=== PATIENT | female | born 1990 | race Two or more races ===

== ENCOUNTER 2024-10-05 11:27 | Emergency (ER) | payer MEDICAID, OTHER ==
[~2024-10-05] VITALS: Ht 144.8 cm; Wt 70.0 kg
--- NOTE | 2024-10-05 11:54 | ED.PDOC ---
General HPI Comments 34y F who presents to the ED for chief complaint of flank pain. Pt states she has been having L sided flank pain since 1 days prior. Pt states the pain is constant, rating the pain 9/10, achy in nature, with associated pain radiating diffusely across her abdomen, with no associated exacerbating or relieving factors. Pt has no associated symptoms but denies nausea, vomiting, diarrhea, fever, cough, chills, dysuria, hematuria or hematemesis. Pt states she is currently 4 1/2 weeks and states she saw OB last week and states she has normal . Pt otherwise states she does have umbilical hernia but states she has not yet seen any provider for it. Pt otherwise denies any other symptoms at this time. Time Seen by MD: 11:50 Reviewed notes: Nurses Notes, Medications, Allergies Allergies: Coded Allergies: NO KNOWN ALLERGIES (Unverified , 10/05/24) Information Source: Patient Mode of Arrival: Ambulatory Brought in by: self Severity: Moderate Inability to void: None Timing: Hours Duration: Since onset Prehospital treatment: None Onset: Spontaneous Symptoms: None History of: None Location: Abdomen, (L)Flank Location male: Other Modifying factors: None associated signs and symptoms: Abdominal Pain, Flank Pain Past Medical History PAST MEDICAL HISTORY: Denies Surgical History: Denies all surgeries Surgical History (Other): D and C WEIGH BOX TENDER History: Denies all WEIGH BOX TENDER Hx Family History Family History: Reviewed,noncontributory to illness Social History Smoker: Non-Smoker Alcohol: Denies ETOH Use Drugs: Denies Drug Use Lives In: Home Constitutional: denies: chills, diaphoresis, fatigue, fever, malaise, sweats, weakness, others EENTM: denies: blurred vision, double vision, ear bleeding, ear discharge, ear drainage, ear pain, ear ringing, eye pain, eye redness, hearing loss, mouth pain, mouth swelling, nasal discharge, nose bleeding, nose congestion, nose pain, photophobia, tearing, throat pain, throat swelling, voice changes, others Respiratory: denies: cough, hemoptysis, orthopnea, SOB at rest, shortness of breath, SOB with excertion, stridor, wheezing, others Cardiovascular: denies: chest pain, dizzy spells, diaphoresis, Dyspnea on exertion, edema, irregular heart beat, left arm pain, lightheadedness, palpitations, PND, syncope, others Gastrointestinal: reports: abdominal pain; denies: abdomen distended, blood streaked bowels, constipated, diarrhea, dysphagia, difficulty swallowing, hematemesis, melena, nausea, poor appetite, poor fluid intake, rectal bleeding, rectal pain, vomiting, others Genitourinary: reports: flank pain; denies: abnormal vagina bleeding, burning, dyspareunia, dysuria, frequency, hematuria, incontinence, pain, , vagina discharge, urgency, others Neurological: denies: dizziness, fainting, headache, left sided numbness, left sided weakness, numbness, paresthesia, pre-existing deficit, right sided numbness, right sided weakness, seizure, speech problems, tingling, tremors, weakness, others Musculoskeletal: denies: back pain, gout, joint pain, joint swelling, muscle pain, muscle stiffness, neck pain, others Integumetry: denies: bruises, change in color, change in hair/nails, dryness, laceration, lesions, lumps, rash, wounds, others Allergic/Immunocompromised: denies: Difficulty Healing, Frequent Infections, Hives, Itching, others Hematologic/Lymphatic: denies: anemia, blood clots, easy bleeding, easy bruising, swollen glands, others Endocrine: denies: excessive hunger, excessive sweating, excessive thirst, excessive urination, flushing, intolerance to cold, intolerance to heat, unexplained weight gain, unexplained weight loss, others Psychiatric: denies: anxiety, bipolar disorder, depression, hopeless, panic disorder, schizophrenia, sleepless, suicidal, others All Other Systems: Reviewed and Negative Physical Exam General Appearance: No Apparent Distress HEENT: Normal ENT Inspection, Pharynx Normal, TMs Normal Neck: Full Range of Motion, Non-Tender, Normal, Normal Inspection Respiratory: Chest Non-Tender, Lungs Clear, No Accessory Muscle Use, No Respiratory Distress, Normal Breath Sounds Cardiovascular: No Edema, No JVD, No Murmur, No Gallop, Normal Peripheral Pulses, Regular Rate/Rhythm Breast Exam: Deferred Gastrointestinal: No Organomegaly, No Pulsatile Mass, Normal Bowel Sounds, Soft, Suprapubic, Tenderness Genitalia: Deferred Pelvic: Deferred Rectal: Deferred Extremities: No calf tenderness, Normal capillary refill, Normal inspection, Normal range of motion, Non-tender, No pedal edema Musculoskeletal : Apperance: Normal Neurologic: Alert, mineral engineer II-XII nml as Tested, No Motor Deficits, Normal Affect, Normal Mood, No Sensory Deficits Cerebellar Function: Normal Reflexes: Normal Skin: Dry, Normal Color, Warm Lymphatic: No Adenopathy Was a procedure done? Was a procedure done?: No Differential Diagnosis Kidney stone (Female): Musculoskeletal pain, Ovarian torsion, Pyelonephritis, Strain, Urolithiasis Urinary Problem (Female): Intrauterine , PID, Pyelonephritis, Urinary retention, UTI X-Ray, Labs, Meds, VS Vital Signs Date Time Temp Pulse Resp B/P (MAP) Pulse Ox O2 Delivery O2 Flow Rate FiO2 10/05/24 12:37 116 18 98 Room Air 10/05/24 12:37 98.2 116 18 148/86 (106) 98 98.2 10/05/24 12:04 99.1 105 18 135/91 (106) 99 Lab Test 10/05/24 11:58 10/05/24 11:51 Range/Units Urine Color Colorless Yellow Urine Clarity Clear Clear Urine pH 7.0 5.0-9.0 Urine Specific [place] 1.005 1.001-1.035 Urine Protein Negative Negative Urine Ketones 1+ H Negative Urine Blood Negative Negative /uL Urine Nitrite Negative Negative Urine Bilirubin Negative Negative Urine Urobilinogen Normal Negative mg/dL Urine Leukocyte Esterase Negative Negative /uL Urine RBC <1 0 - 4 /hpf Urine Microscopic WBC 1 0-5 /HPF Urine Squamous Epithelial Cells Few <5 /hpf Urine Bacteria Few H None Seen /hpf Urine Glucose Normal Normal mg/dL Beta HCG, Quantitative 1758.3 H 1.5-4.2 mIU/mL Current Medications Medications (Trade) Dose Ordered Sig/[facility] Route Start Time Stop Time Status Last Admin Acetaminophen (Tylenol Tablet) 650 mg ONCE ONCE PO 10/05/24 11:45 10/05/24 11:46 DC 10/05/24 12:40 Pelvic ultrasound shows: IMPRESSION: 1. Questionable gestational sac in the uterus with no pole no heart rate. 2. Size of the gestational sac is OOR The patient's urine test is negative The patient was given acetaminophen 650 mg by mouth At this time, the patient was being discharged and will follow up care doctor The patient will return to the emergency department's condition worsens. Images Reviewed?: Images reviewed and evaluated by me Time of 1ST Reevaluation: 12:20 Reevaluation 1ST: Unchanged Patient Education/Counseling: Diagnosis, Treatment, Prognosis, Need For Follow Up Family Education/Counseling: No Family Present Additional Information -Reviewed patient's previous visit(s): - The following tests were ordered, and results were reviewed by me: OB US, beta HCG, UA, - Additional information was gathered from interviewing the following independent Historian: pt - I reviewed and agreed with the following test results read by other provider: radiologist - I discussed treatments and results with medical personnel and: patient Comprehensive systems review obtained and negative except for what is stated in the HPI. Departure 1 Departure Time of Disposition: 16:26 Impression: Primary Impression: Threatened Disposition: HOME / SELF CARE / HOMELESS Condition: Fair Critical Care Note Critical Care Time?: No Stability Stability form required: No Heart Score Heart Score: Heart Score Response (Comments) Value History N/A 0 EKG N/A 0 Age N/A 0 Risk Factors N/A 0 Troponin N/A 0 Total 0 I personally scribed for RETA TIAN MD ([email or web address]) on 10/05/24 at 11:54. Electronically submitted by Pj Fajardo ([email or web address]). RETA TIAN MD Oct 05, 2024 11:54
[2024-10-05 12:25] LABS: Urine Bacteria FEW /hpf (None Seen); Urine Blood Negative /uL (Negative); Urine Clarity Clear (Clear); Urine Color Colorless (Yellow); Urine Protein, UAD Negative (Negative); Urine Specific Gravity 1.005 (1.001-1.035); Urine Squamous Epithelial Cell FEW /hpf (<5); Urine Urobilinogen Normal (Negative); Urine WBC 1 /HPF (0-5)
[2024-10-05] MEDS: ACETAMINOPHEN 325 MG TAB PO ONE (12:40)
--- NOTE | 2024-10-05 14:14 | DVH ---
OB ULTRASOUND <14 WEEKS: HISTORY: pain TECHNIQUE: Multiple real-time grayscale sonographic images of the pelvis with duplex Doppler color f low, spectral and M-mode analysis. TRANSDUCERS: Transabdominal and transvaginal FINDINGS: The uterus measures 8.8 x 4.7 x 5.9 cm. Endometrium measures 13.9 mm. The cervix not measured Right ovary measures 3.5 x 2.5 x 3 cm there is a anechoic lesion with thick wall in the right ovary m easuring 2.1 x 2.6 x 1.8 cm. with normal Doppler color flow Left ovary measures 2.1 x 2.4 x 1.5 cm with normal Doppler color flow There is a gestational sac in the uterus measuring 0.24 cm. No yolk sac is no heart rate. IMPRESSION: 1. Questionable gestational sac in the uterus with no pole no heart rate. 2. Size of the gestational sac is OOR
[2024-10-05 17:19] VITALS: BP 134/85; PULSE 99; RESP 20; TEMP 97.7; O2SAT 100
== END 2024-10-05 16:50 | disposition home or self-care (01) ==
LOC: ER 11:27
DX: O20.0 Threatened abortion (principal); R10.2 Pelvic and perineal pain; Z3A.01 Less than 8 weeks gestation of pregnancy
CPT/HCPCS: 36415; 76801; 76817; 81001; 84702